=== PATIENT | female | born 2000 | race Caucasian/White ===

== ENCOUNTER 2020-11-11 16:21 | Emergency (ER) | payer BC ==
--- OUTSIDE RECORDS SUMMARY | 2020-11-11 16:25 | XMS REPORT | Continuity of Care Document ---
:2000 Author Organization [facility] t Address [address] [place] [address] Care Team Providers Name Role Phone Elliott Emery MD Primary Care Physician Lab, - Db Attending Clinician Unavailable Juan Carlos Mccormack Attending Clinician Doctor Unassigned, Name Attending Clinician Unavailable Bryan Piña MD Attending Clinician Rica Attending Clinician Unavailable Mariel Attending Clinician Unavailable Amado RICKS Attending Clinician Unavailable Payers Payer Name Policy Type Policy Number Effective Date Expiration Date S ource Problems Condition Condition Condition Status Onset Resolution Last Treating Co mments Source Name Details Category Date Date Treatment Clinician Date Pseudotumo Pseudotumo Disease Active U nivers r cerebri r cerebri 3 ity of 00:00: [place] 00 Medical Branch Benign Benign Disease Active [facility] intracrani intracrani 05-27 [facility] al al 00:00: Hospita hypertensi hypertensi 00 l on on Blurred Blurred Disease Active [facility] vision vision 3 st 00:00: Hospita 00 l Allergies, Adverse Reactions, Alerts Allergy Allergy Status Severity Reaction(s) Onset Inactive Treating Comm ents Source Name Type Date Date Clinician No Known DA Active U [facility] Allergie 6-17 Clear s 00:00: Negro 00 [facility] Family History Family Member Diagnosis Comments Start Date Stop Date Source Natural mother Heart disease [facility] Social History Social Habit Start Date Stop Date Quantity Comments Source History SDOH [facility] St[facility] Dr[facility] Hospit al History SDOH [facility] Tobacco use and 2020-08-16 2020-08-16 Never used [facility] exposure 00:00:00 00:00:00 Hospital Alcohol intake 2020-08-16 2020-08-16 Lifetime [facility] 00:00:00 00:00:00 non-drinker Hospital (finding) History SDOH 2020-02-16 2020-02-16 1 [facility] Alcohol Frequency 00:00:00 00:00:00 [facility] Tobacco Comment 2020-02-16 2020-02-16 at age 17 [facility] 00:00:00 00:00:00 Hospital Sex Assigned At 2000 2000 [facility] 00:00:00 [facility]:00 Hospital Smoking Status Start Date Stop Date Source Former smoker 2020-08-16 00:00:00 2020-08-16 00:00:00 [facility] Current every day 2019-05-30 00:00:00 [facility] smoker Medical Branch Medications Ordered Filled Start Stop Current Ordering Indication Dosage Frequency Signature Comments Components Source Medication Medication Date Date Medication? Clinician (SIG) Name Name OLANZapine Yes 5mg Take 5 mg Un deshawn 5 mg tablet 11-11 by mouth ity of 13:24: at [place] 32 bedtime. Medical Branch busPIRone Yes 7.5mg Q.5D Take 7.5 Met hodi (BUSPAR) 6-[address] 7.5 MG 18:52: mouth 2 Hospita tablet 53 (two) l times a day. venlafaxine Yes 225mg QD Take 225 M ethodi 225 MG 6-[address] tablet 18:52: mouth Hospita extended 53 daily. l release 24hr 24 hr tablet acetaZOLAMI Yes [id number] 500mg Q.5D Take 1 Method[facility] DE (DIAMOX) 6-[address] 500 mg 00:00: (500 mg Hospita capsule 00 total) by l mouth 2 (two) times a day. acetaZOLAMI Yes 500mg Take 500 U nivers DE 500 mg 6-14 mg by ity of capsule 00:00: mouth. [place] 00 [facility] Branch acetaZOLAMI No [id number] 500mg Q.5D Take 1 Method[facility] DE (DIAMOX) 2-[address] 500 mg 00:00: 00:00 (500 mg Hospita capsule 00 :00 total) by l mouth 2 (two) times a day. acetaZOLAMI [id number] 500mg Q.5D Take 1 Method[facility] DE (DIAMOX) 04-12- capsule st 500 mg 00:00: 00:00 (500 mg Hospita capsule 00 :00 total) by l mouth 2 (two) times a day for 60 days. acetaZOLAMI 2019-03 [id number] TAKE ONE Methodi DE (DIAMOX) 218 04-12 CAPSULE BY s t 500 mg 00:00: 00:00 MOUTH Hospita capsule 00 :00 TWICE A l DAY acetaZOLAMI 2019-03 [id number] 500mg Q.5D Take 1 [facility]i DE (DIAMOX) 2-15 -[address] 500 mg 00:00: 00:00 (500 mg Hospita capsule 00 :00 total) by l mouth 2 (two) times a day for 90 days. acetaZOLAMI 2019- No 500mg Q.5D Take 500 Method[facility] DE (DIAMOX) 9-14 09-[address] 500 mg 20:12: 00:00 mouth 2 Hospita capsule 14 :00 (two) l times a day. acetaZOLAMI No 500mg Q.5D Take 1 Me thodi DE (DIAMOX) 9-14 12-[address] 500 mg 00:00: 00:00 (500 mg Hospita capsule 00 :00 total) by l mouth 2 (two) times a day. acetaZOLAMI 2019- No [id number] Take 2 Methodi DE (DIAMOX) 6-11 09-[address] 250 MG 00:00: 04:59 (500mg) by Hosp maura tablet 00 :00 mouth 2 l times daily (total of 1,000mg daily). OLANZapine Yes 5mg Take 5 mg Un deshawn 5 mg tablet 3-30 by mouth ity of 14:59: at [place] 02 bedtime. Medical Branch SERTraline 2019-0 Yes 50mg Take 50 mg U nivers 50 mg 3-30 by mouth ity of tablet 14:59: at [place] bedtime. Medical Branch SERTraline 2020-0 Yes 50mg Take 50 mg U nivers 50 mg 3-30 by mouth ity of tablet 14:59: at [place] bedtime. Medical Branch OLANZapine 2019-0 Yes 7.5mg QD Take 7.5 Me thodi (ZYPREXA) 5 3-[address] MG tablet 00:00: mouth Hospita 00 every l morning. sertraline 2019-0 2020- No 50mg QD Take 50 mg Methodi (ZOLOFT) 50 3-[address] MG tablet 00:00: 00:00 nightly. Hos jovan 00 :00 l etonogestre 2018-0 Yes 68mg 68 mg by Un deshawn l 68 mg 5-23 Subdermal [place]y [place] [facility] [place] etonogestre 2018-0 Yes 68mg 68 mg by Un deshawn l 68 mg 5-23 Subdermal [place]y [place] [facility] Immunizations Ordered Immunization Filled Immunization Date Status Commen ts Source Name Name Meningococcal MCV4P 2018-10-04 Completed [facility] 00:00:00 Hospital Vital Signs Vital Name Observation Time Observation Value Comments Source Body height 2020-08-16 18:53:00 167.6 cm [facility] Body weight 2020-08-16 18:53:00 65.772 kg [facility] BMI 2020-08-16 18:53:00 23.40 kg/m2 [facility] Procedures Procedure Date / Time Performed Performing Clinician [facility] e ASSIGNMENT OF BENEFITS 2020-11-11 13:13:28 Doctor Unassigned, No [facility] Name Medical Branch OCT, OPTIC NERVE - OU 2020-08-16 19:24:49 Jose Piña [facility] - BOTH EYES AUTOMATED VISUAL 2020-08-16 19:24:42 Jose Piña H ospital FIELD, EXTENDED - OU - BOTH EYES OCT, OPTIC NERVE - OU 2020-02-16 20:13:51 Jose Piña [facility] - BOTH EYES AUTOMATED VISUAL 2020-02-16 20:13:47 Jose Piña ospital FIELD, EXTENDED - OU - BOTH EYES FUNDUS PHOTOS - OU - 2019-11-17 19[facility]41[facility] 2019-11-17 18:41:56 Jose Piña H ospital FIELD, EXTENDED - OU - BOTH EYES OCT, OPTIC NERVE - OU 2019-11-17 18:41:50 Jose Piña is Hospital - BOTH EYES Plan of Care Planned Activity Planned Date Details Comments Source Future Scheduled Test CHLAMYDIA SCREENING [facility] [code = CHLAMYDIA SCREENING] Future Scheduled Test COVID-19 VACCINE (1) [facility] [code = COVID-19 VACCINE (1)] Future Scheduled Test Hepatitis C screening [facility] (procedure) [code = 275019534] Future Scheduled Test INFLUENZA VACCINE M [facility] [code = INFLUENZA VACCINE] Encounters Start End Encounter Admission Attending Care Care Encounter Source Date/Time Date/Time Type Type Clinicians Facility Department ID 2020-11-11 2020-11-11 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1.[address] 3.430.2.7 Hospit a .3.435293 l .8 2020-08-16 2020-08-16 Telephone Jabari Strauss2.840.1 [id number] [id number] Methodi 00:00:00 00:00:[address] 3.430.2.7 Hospit a .3.939511 l .8 2020-08-16 2020-08-16 Travel 1.2.840.1 1.2.951.020 5734 [id number] Methodi 00:00:00 00:00:[address] 3.430.2.7 0.2.7.3.698 Ho spita .3.366474 084.8 l .8 2020-08-16 2020-08-16 Outpatient JOSE [facility] 031 [id number] [place] 00:00:00 00:00:[address] 2020-04-12 2020-04-12 Telephone Floyd, 1.2.840.1 [id number] Methodi 00:00:00 00:00:[address] 3.430.2.7 Hospit a .3.129964 l .8 2020-04-12 2020-04-12 Telephone Fischer, 1.2.840.1 [id number] Methodi 00:00:00 00:00:[address] 3.430.2.7 Hospit a .3.309495 l .8 2020-02-20 2020-02-20 Refill Jose Piña 1.2.840.1 [id number] 21 [id number] Methodi 00:00:00 00:00:[address] 3.430.2.7 Hospit a .3.192693 l .8 2020-02-18 2020-02-18 Telephone Rica, 1.2.840.1 [id number] Methodi 00:00:00 00:00:[address] 3.430.2.7 Hospit a .3.633323 l .8 2020-02-17 2020-02-17 Telephone Floyd, 1.2.840.1 [id number] 2099 [id number] Methodi 00:00:00 00:00:[address] 3.430.2.7 Hospit a .3.473919 l .8 2020-02-16 2020-02-16 Office Wang Jose 1.2.840.1 [id number] Methodi 13:14:05 15:07:55 Visit Go 17954.1.[address] 3.430.2.7 Hospit a .3.375815 l .8 2020-02-16 2020-02-16 Travel 1.2.840.1 1.2.251.897 [id number] Methodi 00:00:00 00:00:[address] 3.430.2.7 0.2.7.3.698 Ho spita .3.267521 084.8 l .8 2020-02-16 2020-02-16 Outpatient JOSE PI[facility] [id number] [place] 00:00:00 00:00:[address] 2019-11-17 2019-11-17 Office Jose Piña 1.2.840.1 [id number] Methodi 12:18:25 14:40:15 Visit Go 95031.1.[address] 3.430.2.7 Hospit a .3.008555 l .8 2019-11-17 2019-11-17 Telephone Rica, 1.2.840.1 [id number] Methodi 00:00:00 00:00:[address] 3.430.2.7 Hospit a .3.681148 l .8 2019-11-17 2019-11-17 Travel 1.2.840.1 1.2.568.507 [id number] Methodi 00:00:00 00:00:[address] 3.430.2.7 0.2.7.3.698 Ho spita .3.240414 084.8 l .8 2019-11-17 2019-11-17 Outpatient [facility] 055 [id number] [place] 00:00:00 00:00:[address] 2019-08-25 2019-08-25 Outpatient [facility] [id number] [place] 00:00:00 00:00:[address] 2019-05-30 2019-05-30 Outpatient [facility] 058 [id number] [place] 00:00:00 00:00:[address] Results Test Description Test Time Test Comments Results Result Sour e Comments Automated Visual 2020-08-16 Right EyeThreshold [facility] Field, Extended - 23:15:32 was 24-2. Strategy Hospital OU was REN. Progression has been stable. Left EyeThreshold was 24-2. Strategy was REN. Progression has been stable. NotesMD -1.04 OD with midl INS MD +0.57 OS and grossly normal OCT, Optic Nerve 2020-08-16 Right EyeTemporal M ethodist - OU 23:13:56 progression was Hospital stable. Superior progression was stable. Nasal progression was stable. Inferior progression was stable. Left EyeTemporal progression was stable. Superior progression was stable. Nasal progression was stable. Inferior progression was stable. OCT, Optic Nerve 2020-02-16 Jose Piña MD [facility] - OU 20:13:51 - 04/07/2020 5:54 Hospit al PM CST Automated Visual 2020-02-16 [facility], Extended - 20:13:47 - 04/07/2020 5:54 Hospital OU PM CST Fundus Photos - 2019-11-17 Jose Piña MD [facility]ist OU 19:41:05 - 04/07/2020 5:53 Hospit al PM CST Automated Visual 2019-11-17 Jose [facility] MD [facility], Extended - 18:41:56 - 04/07/2020 5:53 Hospital OU PM CST OCT, Optic Nerve 2019-11-17 Jose Piña MD [facility] - OU 18:41:50 - 04/07/2020 5:53 Hospit al CST SURGICAL 2018-08-28 SPECIMENS 07:55:00 --RUN DATE: 08/28/18 [facility] *LIVE* PAGE 1 RUN TIME: 0755 Specimen Inquiry RUN USER: INTERFACE --PATIENT: SHANIA SAMANO LOC: U #: [id number] AGE/SX: 18/F ROOM: RE08/22/18REG DR: Suri Silva MD : 00 BED: DIS: STATUS: CAT KENNEY TLOC: -- SPEC #: [id number] RECD: 08/23/18 STATUS: POPEYE REQ #: [id number] NADER: 08/23/[address]: Suri Silva MD ENTERED: 08/28/18-2530 SP TYPE: SURG SPEC OTHR DR: No Primary or Family Physician Good Borges NPORDERED: GM LEVEL 4 CODES: [id number] - BREAST, NOS COPIES TO: No Primary or Family Physician Suri Silva MD [address] [place] [address] Good Borges NP [address] [place] [address] PROCEDURES: GM LEVEL 4 (Incomplete) TISSUES: 1. BREAST, NOS - Breast, left, excision FINAL DIAGNOSIS Breast, left, excision: Fibroadenoma. GROSS AND MICROSCOPIC GROSS EXAMINATION: Received in formalin labeled left breast excisional biopsy is a 3.5 x 3.1 x 1.5 cm circumscribed white-sanchez on oriented nodule, the margins of the specimen are inked black. The parenchyma of the lesion is white-sanchez with some vague whorling. Submitted (A)-(G). MICROSCOPIC EXAMINATION: Sections of the left breast tissue reveal nodular breast tissue with fibrosis and branching ducts, no significant atypia is identified. CONTINUED ON NEXT PAGE --RUN DATE: 08/28/18 [facility] *LIVE* PAGE 2 RUN TIME: 0755 Specimen Inquiry RUN USER: INTERFACE --SPEC #: [id number] PATIENT: SHANIA SAMANO #[id number] (Continued)------- POST-OP DIAGNOSIS Left breast fibroadenoma PRE-OP DIAGNOSIS Left breast fibroadenoma REVIEWED BY: BRITTANY ----- Signed SIGNATURE ON FILE Urbano Farley DO 08/28/18 0755 -- END OF REPORT COMPREHENSIVE METABOLIC PANEL 2018-08-19 12:42:00 Test Item Value Reference Range Interpretation Comme nts SODIUM (test code = NA) 141 mEq/L 134-147 N POTASSIUM (test code = K) 4.4 mEq/L 3.4-5.0 N CHLORIDE (test code = CL) 107 mEq/L 100-108 N CARBON DIOXIDE (test code = CO2) 28 mEq/L 21-33 N ANION GAP (test code = GAP) 10 0-20 N GLUCOSE (test code = GLU) 82 mg/dL 70-110 N BLOOD UREA NITROGEN (test code = 10 mg/dL 7-18 N BUN) GLOMERULAR FILTRATION RATE (test 81.6 110-120 L Units of measure = code = GFR) ml/min/1.73 m2 CREATININE (test code = CREAT) 0.9 mg/dL 0.6-1.3 N TOTAL PROTEIN (test code = PROT) 7.9 g/dL 6.4-8.2 N ALBUMIN (test code = ALB) 4.40 g/dL 3.4-5.0 N CALCIUM (test code = CA) 9.5 mg/dL 8.0-10.5 N BILIRUBIN TOTAL (test code = BILT) 0.40 mg/dL 0.0-1.0 N SGOT/AST (test code = AST) 21 IUnit/L 15-37 N SGPT/ALT (test code = ALT) 29 IUnit/L 15-65 N ALKALINE PHOSPHATASE TOTAL (test 79 IUnit/L 60-350 N code = ALKP) HCG SERUM [id number] 12:42:00 Test Item Value Reference Range Interpretation Comments HCG SERUM QUAL (test code = SERUM NEGATIVE NEGATIVE HCGQL) COMPREHENSIVE METABOLIC [id number] 12:39:00 Test Item Value Reference Range Interpretation Comments SODIUM (test code = NA) 141 mEq/L 134-147 N POTASSIUM (test code = 4.4 mEq/L 3.4-5.0 N K) CHLORIDE (test code = 107 mEq/L 100-108 N CL) CARBON DIOXIDE (test 28 mEq/L 21-33 N code = CO2) ANION GAP (test code = 10 0-20 N GAP) GLUCOSE (test code = 82 mg/dL 70-110 N GLU) BLOOD UREA NITROGEN 10 mg/dL 7-18 N (test code = BUN) GLOMERULAR FILTRATION 81.6 110-120 L Units of measure = RATE (test code = GFR) ml/mi n/1.73 m2 CREATININE (test code = 0.9 mg/dL 0.6-1.3 N CREAT) TOTAL PROTEIN (test g/dL 6.4-8.2 code = PROT) ALBUMIN (test code = 4.40 g/dL 3.4-5.0 N ALB) CALCIUM (test code = 9.5 mg/dL 8.0-10.5 N CA) BILIRUBIN TOTAL (test mg/dL 0.0-1.0 code = BILT) SGOT/AST (test code = 21 IUnit/L 15-37 N AST) SGPT/ALT (test code = 29 IUnit/L 15-65 N ALT) ALKALINE PHOSPHATASE IUnit/L 60-350 TOTAL (test code = ALKP) HCG SERUM [id number] 12:39:00 Test Item Value Reference Range Interpretation Comments HCG SERUM QUAL (test code = HCGQL) NEGATIVE COMPREHENSIVE METABOLIC [id number] 12:39:00 Test Item Value Reference Range Interpretation Comments SODIUM (test code = NA) 141 mEq/L 134-147 N POTASSIUM (test code = 4.4 mEq/L 3.4-5.0 N K) CHLORIDE (test code = 107 mEq/L 100-108 N CL) CARBON DIOXIDE (test 28 mEq/L 21-33 N code = CO2) ANION GAP (test code = 10 0-20 N GAP) GLUCOSE (test code = 82 mg/dL 70-110 N GLU) BLOOD UREA NITROGEN 10 mg/dL 7-18 N (test code = BUN) GLOMERULAR FILTRATION 81.6 110-120 L Units of measure = RATE (test code = GFR) ml/mi n/1.73 m2 CREATININE (test code = 0.9 mg/dL 0.6-1.3 N CREAT) TOTAL PROTEIN (test g/dL 6.4-8.2 code = PROT) ALBUMIN (test code = 4.40 g/dL 3.4-5.0 N ALB) CALCIUM (test code = 9.5 mg/dL 8.0-10.5 N CA) BILIRUBIN TOTAL (test mg/dL 0.0-1.0 code = BILT) SGOT/AST (test code = 21 IUnit/L 15-37 N AST) SGPT/ALT (test code = 29 IUnit/L 15-65 N ALT) ALKALINE PHOSPHATASE IUnit/L 60-350 TOTAL (test code = ALKP) HCG SERUM [id number] 12:39:00 Test Item Value Reference Range Interpretation Comments HCG SERUM QUAL (test code = SERUM NEGATIVE NEGATIVE HCGQL) CBC W/AUTO [id number] 12:21:00 Test Item Value Reference Range Interpretation Comments WHITE BLOOD CELL (test code = 7.16 x10 3/uL 4.5-11.0 N WBC) RED BLOOD CELL (test code = 4.47 x10 6/uL 3.54-5.02 N RBC) HEMOGLOBIN (test code = HGB) 14.0 g/dL 11.0-15.0 N HEMATOCRIT (test code = HCT) 43.6 % 33.0-45.0 N MEAN CELL VOLUME (test code = 97.5 fL 81.0-99.0 N MCV) MEAN CELL HGB (test code = MCH) 31.3 pg 27.0-33.0 N MEAN CELL HGB CONCETRATION 32.1 g/dL 33.0-37.0 L (test code = MCHC) RED CELL DISTRIBUTION WIDTH CV 12.5 % 11.5-14.5 N (test code = RDW) RED CELL DISTRIBUTION WIDTH SD 44.6 fL 37.0-54.0 N (test code = RDW-SD) PLATELET COUNT (test code = 288 x10 3/uL 150-400 N PLT) MEAN PLATELET VOLUME (test code 9.4 fL 7.0-9.0 H = MPV) NEUTROPHIL % (test code = NT%) 55.5 % 56.0-77.0 L IMMATURE GRANULOCYTE % (test 0.1 % 0.0-2.0 N code = IG%) LYMPHOCYTE % (test code = LY%) 33.1 % 14.0-32.0 H MONOCYTE % (test code = MO%) 8.2 % 4.8-9.0 N EOSINOPHIL % (test code = EO%) 2.4 % 0.3-3.7 N BASOPHIL % (test code = BA%) 0.7 % 0.0-2.0 N NUCLEATED RBC % (test code = 0.0 % 0-0 N NRBC%) NEUTROPHIL # (test code = NT#) 3.97 x10 3/uL 2.0-7.6 N IMMATURE GRANULOCYTE # (test 0.01 x10 3/uL 0.00-0.03 N code = IG#) LYMPHOCYTE # (test code = LY#) 2.37 x10 3/uL 1.0-3.8 N MONOCYTE # (test code = MO#) 0.59 x10 3/uL 0.1-0.8 N EOSINOPHIL # (test code = EO#) 0.17 x10 3/uL 0.0-0.2 N BASOPHIL # (test code = BA#) 0.05 x10 3/uL 0.0-0.2 N NUCLEATED RBC # (test code = 0.00 x10 3/uL 0.0-0.1 N NRBC#) MANUAL DIFF REQUIRED (test code NO = MDIFF)
[2020-11-11 18:17] LABS: Protime INR 1.14
[2020-11-11 18:18] LABS: Absolute Lymphocytes (CBC) 2.2 K/uL (0.7-4.9); Basophils % 0.4 % (0-1.3); Hematocrit 37.9 % (36.0-45.0); Lymphocytes % 12.4 % (15.3-44.8); MPV 7.8 fL (7.6-11.3); RBC Red Blood Cell Count 4.21 M/uL (3.86-4.86)
--- NOTE | 2020-11-11 18:31 | RAD REPORT ---
EXAM DESCRIPTION: RAD - Chest Single View - 11/11/2020 6:11 pm CLINICAL HISTORY: CHEST PAIN COMPARISON: No comparisons FINDINGS: Lines: None. Lungs: No evidence of edema or pneumonia. Pleural: No significant pleural effusions or pneumothorax. Cardiac: The heart size is within normal limits. Bones: No acute fractures. Other: IMPRESSION: No acute cardiopulmonary disease.
[2020-11-11 18:48] LABS: ALT/SGPT 140 U/L (12-78); AST/SGOT 88 U/L (15-37); Albumin 3.5 g/dL (3.4-5.0); Alkaline Phosphatase 116 U/L (45-117); BUN Blood Urea Nitrogen 9 mg/dL (7-18); Bicarbonate 23 mmol/L (21-32); Bilirubin Direct 0.2 mg/dL (0-0.2); Bilirubin Total 0.4 mg/dL (0.2-1.0); Glucose Level 118 mg/dL (74-106); Magnesium 2.6 mg/dL (1.8-2.4); NT PRO-BNP 19 pg/mL (<125); Protein, Total 8.9 g/dL (6.4-8.2); Sodium Level 132 mmol/L (136-145); Troponin (Emerg Dept Use Only) < 0.02 ng/mL (0.0-0.045)
[2020-11-11 18:51] LABS: Potassium 2.2 mmol/L (3.5-5.1)
[2020-11-11] MEDS ORDERED: ONDANSETRON 4 MG/2 ML VIAL ONE (20:15)
[2020-11-11] MEDS ORDERED: Ringers Lactate 1,000 ML IV ONE (20:15)
--- NOTE | 2020-11-11 20:59 | RAD REPORT ---
EXAM DESCRIPTION: CTAbdomen Pelvis W Contrast - 11/11/2020 8:38 pm CLINICAL HISTORY: abdominal pain, vomiting COMPARISON: No comparisons TECHNIQUE: Biphasic CT imaging of the abdomen and pelvis was performed with 100 ml non-ionic IV cont rast. All CT scans are performed using dose optimization technique as appropriate and may include automated exposure control or mA/KV adjustment according to patient size. FINDINGS: Lower chest: No acute abnormality. Liver: No acute abnormality or suspicious lesions. Biliary: No biliary ductal dilatation. Stomach: No significant focal abnormality. Duodenum: No significant focal abnormality. Pancreas: No significant abnormality. Spleen: No significant abnormality. Adrenal: No suspicious lesions. Kidney/ureter: No hydronephrosis. No renal calculi. Right upper pole renal lesion which most likely r epresent cysts. Mild diffuse left urothelial thickening at the collecting system and left ureter. 4.1 cm low-density lesion along the upper pole right kidney. This is fluid attenuation. Retroperitoneum: No retroperitoneal adenopathy. Vascular: No aneurysm. Bowel: Colonic wall thickening with submucosal fatty deposition may reflect sequela of chronic coliti s. Peritoneum: No ascites or free air. Bladder: Grossly unremarkable. Reproductive: No adnexal masses. Bones: No acute fracture. Other: n/a IMPRESSION: Left ureteral enhancement may be secondary to ascending urinary tract infection. Correla te with urinalysis. No hydronephrosis. Colonic wall thickening which may be accentuated by under distended bowel loops. There does appear to be some fatty deposition within the wall which may indicate a chronic colitis. Inflammatory changes are minimal.
--- NOTE | 2020-11-11 21:53 | RAD REPORT ---
EXAM DESCRIPTION: US - Abdomen Exam Limited - 11/11/2020 9:38 pm CLINICAL HISTORY: vomiting, abdominal pain COMPARISON: No comparisons FINDINGS: The gallbladder demonstrates no gallstones. No pericholecystic fluid or gallbladder wall t hickening. The common bile duct is normal measuring 2 mm. The liver demonstrates no findings of intrahepatic biliary dilatation. IMPRESSION: Unremarkable examination.
--- NOTE | 2020-11-12 00:20 | ER ---
Nurse's Notes [facility] Name: Daniela Chapa Age: 20 yrs Sex: Female : 2000 Arrival Date: 11/11/2020 Time: 16:23 Bed 6 Private MD: Diagnosis: UTI/ Urinary tract infection, site not specified;Hypokalemia Presentation: 11/11 16:33 Chief complaint: Patient states: for the past week and a half i have been throwing up. tw2 but i think it has something to do with my eating disorder. ARFID eating disorder. i had blood work today and they told me my potassium was 2.5. Coronavirus screen: At this time, the client does not indicate any symptoms associated with coronavirus-19. Ebola Screen: Patient denies travel to an Ebola-affected area in the 21 days before illness onset. Initial Sepsis Screen: Does the patient meet any 2 criteria? HR > 90 bpm. No. Patient's initial sepsis screen is negative. Does the patient have a suspected source of infection? No. Patient's initial sepsis screen is negative. Risk Assessment: Do you want to hurt yourself or someone else? Patient reports no desire to harm self or others. Onset of symptoms was November 11, 2020. 16:33 Method Of Arrival: Ambulatory tw2 16:33 Acuity: MIHIR 3 tw2 11/12 05:42 Note Pt tolerating PO fluids, ate a turkey sandwich and ambulating to the BR wg independently. Pt denies N/V, dizziness, or abd pain. Triage Assessment: 11/11 16:39 General: Appears in no apparent distress. Behavior is calm, cooperative, appropriate tw2 for age. Pain: Complains of pain in abdomen. Historical: - Allergies: 16:36 Latex, Natural Rubber; tw2 - Home Meds: 16:36 nexplon implant, control [Active]; olanzapine 7.5 mg oral tab 1 tab once daily tw2 [Active]; sertraline 125 mg oral tab 1 tab once daily [Active]; Diamox Sequels 500 mg Oral cpER 1 cap once daily [Active]; - PMHx: 16:36 ARFID; IIH (idiopathic introcrainial hypertension); tw2 16:39 Major depressive disorder; "recurrent"; tw2 - PSHx: 16:36 tumor removed, LEFT breast benign; tw2 - Immunization history:: Adult Immunizations. - Social history:: Smoking status: Reported history of juuling and/or vaping. Patient uses street drugs, marijuana, "one joint", 50 nicotine, "i hit it all day, i'd probably go through a 1 pk a day". Screenin:40 Abuse screen: Denies threats or abuse. Nutritional screening: No deficits noted. tw2 Tuberculosis screening: No symptoms or risk factors identified. Fall Risk None identified. Assessment: 18:28 Reassessment: EKG completed at [address] De La Paz has signed. tw2 18:32 General: Appears in no apparent distress. comfortable, Behavior is cooperative, bp appropriate for age, anxious. Pain: Denies pain. Neuro: Level of Consciousness is awake, alert, obeys commands, Oriented to Appropriate for age. Cardiovascular: Rhythm is sinus tachycardia. Respiratory: No deficits noted. GI: No signs and/or symptoms were reported involving the gastrointestinal system. : No signs and/or symptoms were reported regarding the genitourinary system. EENT: No deficits noted. Derm: No deficits noted. Musculoskeletal: No deficits noted. 19:50 Reassessment: Patient and/or family updated on plan of care and expected duration. Pain ea level reassessed. Patient is alert, oriented x 3, equal unlabored respirations, skin warm/dry/pink. 20:00 Reassessment: Patient appears in no apparent distress at this time. Patient denies pain wg at this time. Patient states feeling better. Patient states symptoms have improved. 21:45 Reassessment: Patient and/or family updated on plan of care and expected duration. Pain ea level reassessed. Patient is alert, oriented x 3, equal unlabored respirations, skin warm/dry/pink. Awaiting on ultrasound results. Vital Signs: 16:33 BP 128 / 80; Pulse 126; Resp 19; Temp 98.7(TE); Pulse Ox 98% on R/A; Weight 72.71 kg tw2 (M); Height 5 ft. 6 in. (167.64 cm); Pain 3/10; 19:30 BP 118 / 67; Pulse 102; Resp 18; Pulse Ox 99% on R/A; Pain 0/10; wg 23:00 BP 110 / 72; Pulse 94; Resp 18; Temp 98.4; Pulse Ox 100% on R/A; Pain 0/10; wg 11/12 02:30 BP 127 / 66; Pulse 80; Resp 18; Pulse Ox 99% on R/A; Pain 0/10; wg 05:30 BP 124 / 62; Pulse 71; Resp 18; Pulse Ox 99% on R/A; Pain 0/10; wg 06:22 BP 118 / 64; Pulse 74; Resp 18; Pulse Ox 99% on R/A; Pain 0/10; wg 11/11 16:33 Body Mass Index 25.87 (72.71 kg, 167.64 cm) tw2 ED Course: 11/11 16:23 Patient arrived in ED. as 16:36 Triage completed. tw2 16:39 Arm band placed on. tw2 17:51 Initial lab(s) drawn, by me, sent to lab. EKG done, by ED staff, reviewed by Hayder 3 Brain SANCHEZ. Inserted saline lock: 20 gauge in left antecubital area, using aseptic technique. Blood collected. 18:11 XRAY Chest (1 view) In Process Unspecified. EDMS 18:32 Varun Sandoval PA is PHCP. jm 18:32 Hayder De La Paz MD is Attending Physician. jm 18:32 Say Marquez, JANAE is Primary Nurse. bp 18:32 Patient has correct armband on for positive identification. Bed in low position. Call bp light in reach. Side rails up X2. 20:38 CT Abd/Pelvis - IV Contrast Only In Process Unspecified. EDMS 21:37 US Abdomen Limited In Process Unspecified. EDMS 11/12 00:19 Joselo Horne is Hospitalizing Provider. [facility] 00:27 Varun Sandoval PA is PHCP. jm 00:27 Brown Martin MD is Attending Physician. [facility] 06:24 No provider procedures requiring assistance completed. IV discontinued, intact, wg bleeding controlled, No redness/swelling at site. Pressure dressing applied. Administered Medications: 11/11 20:00 Drug: Zofran (Ondansetron) 4 mg Route: IVP; Site: left antecubital; ea 21:00 Follow up: Response: No adverse reaction ea 20:01 Drug: Lactated Ringers Solution 1000 ml Route: IV; Rate: 1000 bolus; Site: left ea antecubital; 22:00 Follow up: Response: No adverse reaction; IV Status: Completed infusion; IV Intake: ea 1000ml 11/12 00:19 Drug: Potassium Chloride 20 mEq Route: IV; Rate: calculated rate; Infused Over: 3 hrs; wg Site: left antecubital; 02:30 Follow up: Response: No adverse reaction; IV Status: Completed infusion ea 00:35 Drug: Diamox Sequels (acetaZOLAMIDE) Extended Release Capsule 500 mg Route: PO; wg 01:00 Follow up: Response: No adverse reaction ea 00:35 Drug: Rocephin (cefTRIAXone) 1 grams Route: IV; Rate: calculated rate; Infused Over: 5 wg mins; Site: left antecubital; 06:16 Follow up: Response: No adverse reaction; IV Status: Completed infusion ea 00:53 Drug: Potassium Chloride 60 mEq Route: PO; wg 06:16 Follow up: Response: No adverse reaction ea 03:12 Drug: Potassium Chloride 20 mEq Route: IV; Rate: 1 calculated rate; Infused Over: 2 wg hrs; Site: left antecubital; 06:16 Follow up: Response: No adverse reaction; IV Status: Completed infusion ea 06:24 Follow up: IV Status: Completed infusion wg 06:24 Follow up: IV Status: Completed infusion wg 06:25 Follow up: IV Status: Completed infusion wg 06:25 Follow up: Response: No adverse reaction; IV Status: Completed infusion wg 06:26 Follow up: Response: No adverse reaction; IV Status: Completed infusion wg 06:26 Follow up: Response: No adverse reaction; IV Status: Completed infusion wg 04:31 Drug: Cipro (ciprofloxacin) 500 mg Route: PO; wg 04:37 Drug: Potassium Effervescent Tablet 50 mEq Route: PO; wg Intake: 11/11 22:00 IV: 1000ml; Total: 1000ml. ea Outcome: 11/12 00:20 Decision to Hospitalize by Provider. yuri 05:41 Discharge ordered by . chris 06:22 Discharged to home ambulatory. wg 06:22 Condition: stable 06:22 Discharge instructions given to patient, Instructed on discharge instructions, follow up and referral plans. medication usage, Demonstrated understanding of instructions, follow-up care, medications, Prescriptions given X 2. 06:27 Patient left the ED. wg Signatures: Dispatcher [employer] EDMS Brown Martin MD MD cha Mickail, Varun, PA PA jmm Marco, Esha as Angelica Melgoza RN RN tw2 [facility] Rosa Coleman RN RN ea Peltier, Brian, RN RN bp Gamba, Liam, RN wg Corrections: (The following items were deleted from the chart) 11/11 18:30 16:33 Chief complaint: Patient states: for the past week and a half i have been tw2 throwing up. but i think it has something to do with my eating disorder. ARFID eating disorder. tw2
--- NOTE | 2020-11-12 00:21 | EDPHYS ---
Physician Documentation [facility] Name: Daniela Chapa Age: 20 yrs Sex: Female : 2000 Arrival Date: 11/11/2020 Time: 16:23 Bed 6 Private MD: THIEN Physician Brown Martin HPI: 11/12 00:15 This 20 yrs old Female presents to ER via Ambulatory with complaints of jmm Abnormal Lab Results - potassium. 00:15 The patient presents to the emergency department with nausea, vomiting, diarrhea. jmm Onset: The symptoms/episode began/occurred 10 day(s) ago. Possible causes: flare up of bowel problem. The symptoms are aggravated by nothing. The symptoms are alleviated by nothing. Associated signs and symptoms: Pertinent negatives: fever. Is a 20-year-old female with a history of pseudotumor cerebri a, depression that presents to the emergency department with complaints of vomiting diarrhea and generalized fatigue. Patient was evaluated outpatient had concerns for low potassium. Historical: - Allergies: 11/11 16:36 Latex, Natural Rubber; tw2 - Home Meds: 16:36 nexplon implant, control [Active]; olanzapine 7.5 mg oral tab 1 tab once daily tw2 [Active]; sertraline 125 mg oral tab 1 tab once daily [Active]; Diamox Sequels 500 mg Oral cpER 1 cap once daily [Active]; - PMHx: 16:36 ARFID; IIH (idiopathic introcrainial hypertension); tw2 16:39 Major depressive disorder; "recurrent"; tw2 - PSHx: 16:36 tumor removed, LEFT breast benign; tw2 - Immunization history:: Adult Immunizations. - Social history:: Smoking status: Reported history of juuling and/or vaping. Patient uses street drugs, marijuana, "one joint", 50 nicotine, "i hit it all day, i'd probably go through a 1 pk a day". ROS: 11/12 00:17 Constitutional: Negative for fever, chills, and weight loss, Cardiovascular: Negative jmm for chest pain, palpitations, and edema, Respiratory: Negative for shortness of breath, cough, wheezing, and pleuritic chest pain. Abdomen/GI: Positive for abdominal pain, nausea and vomiting, diarrhea. All other systems are negative. Exam: 00:17 Constitutional: This is a well developed, well nourished patient who is awake, alert, jmm and in no acute distress. Head/Face: atraumatic. Eyes: EOMI, no conjunctival erythema appreciated ENT: Moist Mucus Membranes Neck: Trachea midline, Supple Chest/axilla: Normal chest wall appearance and motion. Cardiovascular: Regular rate and rhythm. No edema appreciated Respiratory: Normal respirations, no respiratory distress appreciated Abdomen/GI: Non distended, soft Back: Normal ROM Skin: General appearance color normal MS/ Extremity: Moves all extremities, no obvious deformities appreciated, no edema noted to the lower extremities Neuro: Awake and alert, normal gait Psych: Behavior is normal, Mood is normal, Patient is cooperative and pleasant Vital Signs: 11/11 16:33 BP 128 / 80; Pulse 126; Resp 19; Temp 98.7(TE); Pulse Ox 98% on R/A; Weight 72.71 kg tw2 (M); Height 5 ft. 6 in. (167.64 cm); Pain 3/10; 19:30 BP 118 / 67; Pulse 102; Resp 18; Pulse Ox 99% on R/A; Pain 0/10; wg 23:00 BP 110 / 72; Pulse 94; Resp 18; Temp 98.4; Pulse Ox 100% on R/A; Pain 0/10; wg 11/12 02:30 BP 127 / 66; Pulse 80; Resp 18; Pulse Ox 99% on R/A; Pain 0/10; wg 05:30 BP 124 / 62; Pulse 71; Resp 18; Pulse Ox 99% on R/A; Pain 0/10; wg 06:22 BP 118 / 64; Pulse 74; Resp 18; Pulse Ox 99% on R/A; Pain 0/10; wg 11/11 16:33 Body Mass Index 25.87 (72.71 kg, 167.64 cm) tw2 MDM: 11/11 18:41 Patient medically screened. [facility] 11/12 00:17 Data reviewed: vital signs, nurses notes. Counseling: I had a detailed discussion with yuri the patient and/or guardian regarding: the historical points, exam findings, and any diagnostic results supporting the discharge/admit diagnosis, lab results, radiology results, the need for further work-up and treatment in the hospital. ED course: I discussed the patient with Torres Bautista PA-C accepted the patient to Dr. Ozzie reece. 02:56 Transition of care: After a detail discussion of the patient's case, care is jmm transferred to Brown Martin MD. 11/11 17:38 Order name: Basic Metabolic Panel tw2 11/11 17:38 Order name: CBC with Diff tw2 11/11 17:38 Order name: LFT's; Complete Time: 19:00 tw2 11/11 17:38 Order name: Magnesium; Complete Time: 19:00 2 11/11 17:38 Order name: NT PRO-BNP; Complete Time: 19:00 tw2 11/11 17:38 Order name: PT-INR; Complete Time: 18:36 tw2 11/11 17:38 Order name: Troponin (emerg Dept Use Only); Complete Time: 19:00 2 11/11 17:38 Order name: Basic Metabolic Panel; Complete Time: 19:00 EDNM 11/11 17:38 Order name: CBC with Automated Diff; Complete Time: 18:36 [facility] 11/11 21:45 Order name: SARS-COV-2 RT PCR; Complete Time: 21:46 [facility] 11/12 00:26 Order name: Phosphorus; Complete Time: 00:58 [facility] 11/12 02:48 Order name: Urine Dipstick-Ancillary; Complete Time: 03:33 [facility] 11/12 02:49 Order name: Test Urine - POC; Complete Time: 03:33 11/11 17:38 Order name: XRAY Chest (1 view); Complete Time: 18:36 [facility] 11/11 17:38 Order name: EKG; Complete Time: 17:38 [facility] 11/11 20:21 Order name: CT Abd/Pelvis - IV Contrast Only; Complete Time: 21:03 [facility] 11/11 20:21 Order name: US Abdomen Limited; Complete Time: 21:58 [facility] 11/12 03:45 Order name: Chem 7: 430 am [facility] 11/12 03:45 Order name: Basic Metabolic Panel; Complete Time: 06:09 [facility] 11/11 17:38 Order name: EKG - Nurse/Tech; Complete Time: 18:05 [facility] 11/11 17:38 Order name: IV Saline Lock; Complete Time: 18:05 [facility] 11/11 17:38 Order name: Labs collected and sent; Complete Time: 18:05 tw2 11/11 17:38 Order name: O2 Per Protocol; Complete Time: 18:05 2 11/11 19:01 Order name: Urine Test (obtain specimen); Complete Time: 03:12 [facility] 11/11 19:01 Order name: Urine Dipstick-Ancillary (obtain specimen); Complete Time: 03:12 [facility] 11/12 03:39 Order name: PO challenge: juice x 2; Complete Time: 03:59 chris Administered Medications: 11/11 20:00 Drug: Zofran (Ondansetron) 4 mg Route: IVP; Site: left antecubital; ea 21:00 Follow up: Response: No adverse reaction ea 20:01 Drug: Lactated Ringers Solution 1000 ml Route: IV; Rate: 1000 bolus; Site: left ea antecubital; 22:00 Follow up: Response: No adverse reaction; IV Status: Completed infusion; IV Intake: ea 1000ml 11/12 00:19 Drug: Potassium Chloride 20 mEq Route: IV; Rate: calculated rate; Infused Over: 3 hrs; wg Site: left antecubital; 02:30 Follow up: Response: No adverse reaction; IV Status: Completed infusion ea 00:35 Drug: Diamox Sequels (acetaZOLAMIDE) Extended Release Capsule 500 mg Route: PO; wg 01:00 Follow up: Response: No adverse reaction ea 00:35 Drug: Rocephin (cefTRIAXone) 1 grams Route: IV; Rate: calculated rate; Infused Over: 5 wg mins; Site: left antecubital; 06:16 Follow up: Response: No adverse reaction; IV Status: Completed infusion ea 00:53 Drug: Potassium Chloride 60 mEq Route: PO; wg 06:16 Follow up: Response: No adverse reaction ea 03:12 Drug: Potassium Chloride 20 mEq Route: IV; Rate: 1 calculated rate; Infused Over: 2 wg hrs; Site: left antecubital; 06:16 Follow up: Response: No adverse reaction; IV Status: Completed infusion ea 06:24 Follow up: IV Status: Completed infusion wg 06:24 Follow up: IV Status: Completed infusion wg 06:25 Follow up: IV Status: Completed infusion wg 06:25 Follow up: Response: No adverse reaction; IV Status: Completed infusion wg 06:26 Follow up: Response: No adverse reaction; IV Status: Completed infusion wg 06:26 Follow up: Response: No adverse reaction; IV Status: Completed infusion wg 04:31 Drug: Cipro (ciprofloxacin) 500 mg Route: PO; wg 04:37 Drug: Potassium Effervescent Tablet 50 mEq Route: PO; wg Disposition Summary: 11/12/20 05:41 Discharge Ordered Location: Home(11/12/20 05:41) chris Problem: new(11/12/20 05:41) chris Symptoms: have improved(11/12/20 05:41) chris Condition: Stable(11/12/20 05:41) chris Diagnosis - UTI/ Urinary tract infection, site not specified chris - Hypokalemia(11/12/20 05:41) chris Followup: chris - With: Private Physician - When: 2 - 3 days - Reason: Recheck today's complaints, Continuance of care, Re-evaluation by your physician Discharge Instructions: - Discharge Summary Sheet chris - Potassium Content of Foods chris - Dysuria chris - Urinary Tract Infection, Adult chris - Urinary Tract Infection, Adult, [id number] chris - Hypokalemia chris Forms: - Medication Reconciliation Form chris - Thank You Letter chris - Antibiotic Education chris - Prescription Opioid Use chris Prescriptions: - Potassium Chloride 20 meq Oral Packet - take 1 packet by ORAL route every 12 hours 1 packet in 6 (six) ounces of water chris or juice; Take after meal; 30 packet; Refills: 0, Product Selection Permitted - Cipro 500 mg Oral Tablet - take 1 tablet by ORAL route every 12 hours for 7 days; 14 tablet; Refills: 0, chris Product Selection Permitted Addendum: 11/13/2020 20:13 Co-signature as Attending Physician, Brown Martin MD I agree with the assessment and c armstrong plan of care. Signatures: Dispatcher [employer] Brown Strong MD MD cha Mickail, Joel, PA PA jmm Wise, Tara RN RN tw2 Rosa Coleman RN RN ea Gamba, Liam, RN wg Corrections: (The following items were deleted from the chart) 11/11 20:52 19:01 CORONAVIRUS+ ordered. RADHA GARCIA 11/12 00:30 00:20 Observation yuri welch 00:30 00:20 Joselo Horne 00:30 00:20 Telemetry/MedSurg (observation) zairam jmm 00:30 00:20 Stable jmm jm 00:30 00:20 new jmm jm 00:30 00:20 are unchanged jmm jm 00:30 00:20 Standard jmm jm 00:30 00:20 jmm jm 00:30 00:20 Hypokalemia zairam [facility] 00:30 00:20 Vomiting m [facility] 00:30 00:20 Diarrhea, unspecified [facility]
[2020-11-12] MEDS ORDERED: KCL 20 MEQ/100 mL IVPB 20 MEQ/100 ML BAG IV ONE ×2 (00:38→03:33)
[2020-11-12] MEDS ORDERED: acetaZOLAMIDE 250 MG TAB ONE (00:46)
[2020-11-12] MEDS ORDERED: CEFTRIAXONE/SWI 1gm 1 GM/10 ML SYR ONE (00:51)
[2020-11-12] MEDS ORDERED: NA CHLORIDE 0.9% 250 ML ONE ×2 (00:56→03:33)
[2020-11-12] MEDS ORDERED: POTASSIUM CL SA 10 MEQ TAB PO ONE (01:11)
[2020-11-12 02:48] LABS: Urine Blood 1+ (Negative); Urine Glucose Negative (Negative); Urine Protein Negative (Negative)
[2020-11-12] MEDS ORDERED: CIPROFLOXACIN HCL 500 MG TAB ONE (04:44)
[2020-11-12] MEDS ORDERED: POTASSIUM 25 MEQ EFFERV TAB ONE (04:45)
[2020-11-12 05:51] LABS: Potassium 3.3 mmol/L (3.5-5.1)
[2020-11-12 06:38] VITALS: TEMP 98.4
[2020-11-12 06:39] VITALS: O2SAT 99
[2020-11-12 06:42] VITALS: BP 118/64
== END 2020-11-12 06:27 | disposition home or self-care (01) ==
LOC: ER 16:21
DX: E87.6 Hypokalemia (principal); N39.0 Urinary tract infection, site not specified; Z20.822 Contact with and (suspected) exposure to COVID-19; Z91.040 Latex allergy status; Z91.048 Other nonmedicinal substance allergy status
CPT/HCPCS: 96365; 96361; 93005; 85025; 80048 ×2; 36415 ×2; 83735; 81025; 84100; 85610; 80076; 81003; 84484; 83880; 74177; 71045; 76705; 96375; 99284; 96366; U0003; Q9967; J3480 ×2; J0696; J7120; J7050 ×2; J2405